=== PATIENT | female | born 1940 | race Hispanic/Latino ===

== ENCOUNTER 2016-12-30 14:30 | Inpatient (IN) | payer MEDICARE ==
[2016-12-30] MEDS ORDERED: ALUM-MAG HYDROX-SIMETH 200-200-20MG/5ML PO PRN (14:37)
[2016-12-30] MEDS ORDERED: TYLENOL PO PRN (14:37)
[2016-12-30] MEDS ORDERED: ZOFRAN IV PRN (14:37)
[2016-12-30] MEDS ORDERED: DULCOLAX PR PRN (14:37)
[2016-12-30] MEDS ORDERED: MILK OF MAGNESIA PO PRN (14:37)
[2016-12-30 16:12] LABS: Basophils % (Auto) 0.3 % (0.0-1.8); Hemoglobin 12.8 gm/dl (10.1-14.3); Mean Corpuscular HGB Conc 32 % (30-34); Mean Corpuscular Hemoglobin 30 pg (28-32); Mean Corpuscular Volume 94 fl (79-97); Platelet Count 256 K/mm3 (140-440); Red Blood Count 4.26 M/mm3 (3.65-5.03); Red Cell Distribution Width 14.5 % (13.2-15.2); White Blood Count 11.3 K/mm3 (4.5-11.0)
[2016-12-30 16:22] LABS: INR 0.95 (0.87-1.13)
[2016-12-30 16:23] LABS: Partial Thromboplastin Time 22.6 Sec. (24.2-36.6)
[2016-12-30] MEDS ORDERED: NACL 0.9% 1000 ML 1,000 ML IV SCH (17:00)
[2016-12-30] MEDS ORDERED: NACL 0.9% 500 ML 500 ML IV SCH (17:00)
[2016-12-30] MEDS: COLACE PO SCH ×2 (17:03→21:35)
--- NOTE | 2016-12-30 17:51 | Short Stay Summary ---
Short Stay Documentation Date of service: 12/30/16 Narrative H&P: The patient is 76-year-old woman with a history of coronary artery disease, who underwent coronary artery bypass surgery 7 years ago in [facility]. The bypass graft report is not available, and she is uncertain about the number of bypass grafts. Currently, she is undergoing outpatient hardier workup in anticipation of low back surgery. A thallium stress test was reported abnormal , which prompted a recommendation for an outpatient cardiac catheterization. 3 cardiac catheterization evaluation reported chronic kidney disease, and the patient is therefore recommended for inpatient admission on the day prior to the cath for IV saline hydration. The patient reports no chest pain, no shortness of breath, no palpitations, no edema and is otherwise asymptomatic from the cardiac status. Laboratory values prior to the cardiac catheterization revealed a creatinine of 1.3-1.5. Risks and benefits of the procedure, including elevated risk of contrast nephropathy, has been fully discussed with the patient and family and they have consented to proceed. We also find that the patient has an allergy to intravenous contrast, and she will be premedicated with oral prednisone. - History H&P: obtained from office Past Medical History: CAD Past Surgical History: CABG - Allergies and Medications Current Medications: Allergies SKYE Inhibitors Adverse Reaction (Verified 12/30/16 15:16) Swelling Iodinated Contrast Media - IV Dye Adverse Reaction (Verified 12/30/16 15:16) Rash Active Medications Acetaminophen (Tylenol) 650 mg PO Q4H PRN PRN Reason: Pain MILD(1-3)/Fever >100.5/[place] Hydrox/Mg Hydrox/Simethicone (Alum-Mag Hydrox-Simeth [id number]/5ml) 30 ml PO Q4H PRN PRN Reason: Indigestion Aspirin (Halfprin Ec) 81 mg PO QDAY ADRI Bisacodyl (Dulcolax) 10 mg [place] QDAY PRN PRN Reason: Constipation unrelieved by MOM Docusate Sodium (Colace) 100 mg PO BID [facility] Last Admin: 12/30/16 17:03 Dose: 100 mg Sodium Chloride (Nacl 0.9% 1000 Ml) 1,000 mls @ 75 mls/hr IV DIRECT ADRI Magnesium Hydroxide (Milk Of Magnesia) 30 ml PO Q4H PRN PRN Reason: Constipation Ondansetron HCl (Zofran) 4 mg IV Q8H PRN PRN Reason: N/V unrelieved by Reglan Prednisone (Deltasone) 50 mg PO Q6H ADRI Stop: 12/31/16 06:01 Zolpidem Tartrate (Ambien) 5 mg PO QHS PRN PRN Reason: Insomnia - Physical exam General appearance: no acute distress Integumentary: no rash HEENT: Atraumatic Lungs: Clear to auscultation Breasts: deferred Heart: Regular rate Gastrointestinal: normoactive bowel sounds Female Genitourinary: deferred Rectal Exam: deferred Extremities: No edema Neurological: Normal gait, Normal speech Short Stay Discharge Plan Follow up with: PRIMARY CARE, [Primary Care Provider] - 7 Days
[2016-12-30] MEDS ORDERED: ASPIRIN PO SCH (18:00)
--- NOTE | 2016-12-30 18:26 | Admit Criteria Form ---
Admission Criteria Documentation: CARDIOLOGY GRG Clinical Indications for Admission to Inpatient Care ( Place 'X' for any and all applicable criteria): Hospital admission is needed for appropriate care of the patient because of ANY ONE of the following (1): [ ] I. Hemodynamic instability as indicated by ALL of the following (1)(2)(3) (4)(5) [ ]a) Vital signs or other findings not as expected for chronic patient condition or baseline [ ]b) Instability indicated by ANY ONE of the following: [ ]i) Hypotension [ ]ii) Symptomatic Tachycardia unresponsive to treatment ( e.g., analgesia, fluids, sedation as indicated) [ ]iii) Inadequate perfusion indicated by ANY ONE of the following: [ ] 1) Lactic acidosis (> 2 mmol/L) [ ] 2) New abnormal capillary refill (> 3 seconds) [ ] 3) Reduced urine output [ ] 4) New altered mental status [ ]iv) Orthostatic vital sign changes unresponsive to treatment (e.g., fluids) [ ]v) IV inotropic or vasopressor medication required to maintain adequate blood pressure or perfusion [ ] II. Severe heart failure as indicated by ANY ONE of the following(17)(18) [ ]a) Respiratory distress [ ]b) Hypotension [ ]c) Anasarca (refractory to outpatient therapy) [ ]d) Cardiac arrhythmias of immediate concern [ ]e) Myocardial ischemia [ ] III. Cardiac arrhythmias or findings of immediate concern indicated by ANY ONE of the following (19)(20): [ ] a) Heart rhythms that are inherently dangerous or unstable indicated by ANY ONE of the following (21)(22)(23): [ ] i) Resuscitated ventricular fibrillation or cardiac arrest [ ] ii) Ventricular escape rhythm [ ] iii) Sustained ventricular tachycardia (30 seconds or more of ventricular rhythm at greater than 100 beats per minute) [ ] iv) Nonsustained ventricular tachycardia and ANY ONE of the following: [ ] 1) Suspected cardiac ischemia as cause or consequence of ventricular tachycardia [ ] 2) In setting of acute myocarditis [ ] b) Unstable cardiac conduction defects indicated by ANY ONE of the following(23)(24)(25) [ ] i) Type II second-degree atrioventricular block [ ]ii) Third-degree atrioventricular block [ ]iii) New-onset left bundle branch block with suspected myocardial ischemia [ ]c) Any heart rhythm and ANY ONE of the following (21)(22)(26)(27) (28) [ ] i) Continuous long-term ECG monitoring needed (e.g., initiation of drug requiring monitoring for more than 24 hours) [ ] ii) Patient has automatic implanted cardioverter defibrillator that is repeatedly firing, malfunctioning, or in need of immediate adjustment of settings beyond the scope of ambulatory or observation care [ ]d) Heart rhythms of concern due to ANY ONE of the following: [ ] i) Hypotension [ ] ii) Respiratory distress [ ] iii) Association with other significant symptoms (e.g., bradycardia with syncope or ongoing dizziness, supraventricular tachycardia with chest pain (14)(15)(17) [ ] IV. Monitoring for cardiac contusion beyond the scope of observation care needed [A](30)(31)(32) [ ] V. Surgical or device complication (e.g., valve replacement complication , pacemaker dysfunction) (35)(41)(44)(45)(46) [ ] . Inpatient palliative care needed. [B](49) Also use Inpatient Palliative Care Criteria [ ] VII. Nonbacterial thrombotic (marantic) endocarditis (36)(43)(47)(48) [X ] VIII. Cardiology condition, symptom, or finding for which emergency and observation care has failed or are not considered appropriate. [ ] IX. Acute valvular disease requiring inpatient as indicated by ANY ONE of the following (41) [ ]a) Acute valvular regurgitation (42) [ ]b) Noninfectious valvulitis (43) [ ]c) Obstructive valve thrombosis [ ]d) Paravalvular leak [ ]e) Other significant valvular disorder remaining after emergency or observation level of care (as appropriate) [ ]X. Pericardial disease requiring inpatient treatment as indicated by ANY ONE of the following (33)(34)(35)(36)(37) [ ]a) Suspected tamponade (38)(39)(40) [ ]b) Hemopericardium [ ]c) Other significant pericardial disorder remaining after emergency or observation level of care (as appropriate) [ ] XI. Cardiac ischemia beyond scope of emergency and observation care. [ ] XII. Hypertension requiring inpatient treatment as indicated by ANY ONE of the following (6)(7)(8) [ ]a) SBP greater than 220 mm Hg or DBP greater than 120 mmHg despite treatment [ ]b) SBP greater than 140 mm Hg or DBP greater than 100 mm Hg with evidence of acute end organ damage as indicated by ANY ONE of the following [ ] i) Altered mental status [ ] ii) Acute renal failure as indicated by new onset of ANY ONE of the following (9)(10)(11)(12)(13) [ ]1) 3-fold rise in serum creatinine from baseline [ ]2) Serum creatinine greater than 4 mg/dL ( 354 micromoles/L) with acute rise greater than 0.5 mg/dL (44.2 micromoles/L) [ ]3) Reduction of more than 75% in estimated glomerular filtration rate from baseline [ ]4) Estimated glomerular filtration rate less than 35 mL/min/1.73m2 (0.59 mL/sec/1.73m2) in child up to 18 years of age [ ]5) Cessation of urine output indicated by ALL of the following [ ]A. Adequate volume status [ ]B. Inadequate urine output as indicated by ANY ONE of the following [ ]a. Urine output less than 0.3 mL/kg/hr for 24 hours [ ]b. Anuria (urine output less than 0.1 mL/kg/hr) for 12 hours [ ] iii) Aortic dissection [ ] iv) Myocardial Ischemia [ ] v) Left ventricular heart failure [ ]vi) Retinal Hemorrhage [ ]vii) Other significant finding [ ]c) Hypertension in child requiring inpatient treatment as indicated by ALL of the following(14)(15)(16) [ ] i) Outpatient treatment not effective, not available, or not appropriate [ ]ii) SBP or DBP greater than 95th percentile for age [ ]iii) Evidence of acute end organ damage as indicated by ANY ONE of the following [ ]1) Altered mental status [ ]2) Acute renal failure as indicated by new onset of ANY ONE of the following(9)(10)(11)(12)(13) [ ]A. 3-fold rise in serum creatinine from baseline [ ]B. Serum creatinine greater than 4 mg/dL (354 micromoles/L) with acute rise greater than 0.5 mg/dL (44.2 micromoles/L) [ ]C. Reduction of more than 75% in estimated glomerular filtration rate from baseline [ ]D. Estimated glomerular filtration rate less than 35 mL/min/1.73m2 (0.59 mL/sec/1.73m2) in child up to 18 years of age [ ]E. Cessation of urine output indicated by ALL of the following [ ]a. Adequate volume status [ ]b. Inadequate urine output as indicated by ANY ONE of the following [ ]i) Urine output less than 0.3 mL/kg/hr for 24 hours [ ]ii) Anuria ( urine output less than 0.1 mL/kg/hr) for 12 hours [ ]3) Severe headache [ ]4) Visual disturbance [ ]5) Retinal hemorrhage [ ]6) Other significant finding [ ]XIII. Complications of transplanted heart indicated by ANY ONE of the following(61): [ ]a) Acute graft rejection requiring inpatient management (eg, intravenous immunosuppression)(62)(63) [ ]b) Acute graft heart failure indicated by ANY ONE of the following(64): [ ]i) Hemodynamic instability [ ]ii) Cardiac arrhythmias of immediate concern [ ]iii) Pulmonary edema that is very severe (eg, mechanical ventilation needed, imminent or likely, need for 100% oxygen to keep oxygen saturation above 90%) [ ]iv) Pulmonary edema that is persistent as indicated by ALL of the following: [ ]1) New need for oxygen therapy to keep oxygen saturation above 90% (or increased FiO2 need from baseline) [ ]2) Has not improved sufficiently with emergency department or observation care IV diuretics or other heart failure treatments[E] [ ]v) Altered mental status that is severe or persistent [ ]vi) Increased creatinine (new on laboratory test) with reduction of more than 50% in estimated glomerular filtration rate from baseline [ ]vii) Progressively (ongoing) rising creatinine (known from past laboratory test) with reduction of more than 25% in estimated glomerular filtration rate from baseline [ ]viii) Acute renal failure [ ]ix) Acute peripheral ischemia (eg, examination shows pulseless, cool, mottled, or cyanotic extremity) [ ]x) Pulmonary artery catheter monitoring needed [ ]xi) Other sign or symptom of heart failure requiring inpatient treatment (ie, too severe or not responsive to outpatient and observation care treatment) [ ]c) Infection requiring inpatient management (eg, Hemodynamic instability, need for intravenous antimicrobial treatment)(66)(67)(68)(69)(70) [ ]d) Cardiac allograft vasculopathy requiring inpatient management ( eg evidence of cardiac ischemia)(71) [ ]e) Other complication of transplanted heart (eg, stroke, severe pulmonary hypertension, severe valvular dysfunction) requiring inpatient management(72) The original [facility] [employer] content created by [employer] has been revised. The portions of the content which have been revised are identified through the use of italic text or in bold, and [facility] has neither reviewed nor approved the modified material. All other unmodified content is copyright [facility] [employer]. Please see references footnoted in the original [facility] [employer] edition 2016 Admission Criteria Met: Yes
[2016-12-30] MEDS: HALFPRIN EC PO SCH (18:35)
[2016-12-30] MEDS: DELTASONE PO SCH ×2 (18:36→23:20)
[2016-12-30 19:01] LABS: BUN/Creatinine Ratio 17.33; Calcium 9.6 mg/dL (8.4-10.2); Chloride 97.6 mmol/L (98-107); Potassium 5.6 mmol/L (3.6-5.0)
[2016-12-30] MEDS ORDERED: AMBIEN PO PRN (22:00)
[2016-12-31 05:32] LABS: BUN/Creatinine Ratio 23.07; Calcium 9.7 mg/dL (8.4-10.2); Chloride 96.9 mmol/L (98-107); Potassium 4.5 mmol/L (3.6-5.0)
[2016-12-31] MEDS: DELTASONE PO SCH (05:46)
[2016-12-31] MEDS: HALFPRIN EC PO SCH (09:40)
[2016-12-31] MEDS: COLACE PO SCH (09:40)
[2016-12-31] MEDS ORDERED: HALFPRIN EC PO ONE (10:11)
[2016-12-31] MEDS ORDERED: BENADRYL ONE (10:11)
[2016-12-31] MEDS ORDERED: NACL 0.9% 500 ML 500 ML ONE (10:16)
[2016-12-31] MEDS ORDERED: HEPARIN/NS 5000 UNIT/500ML(CATH LAB) 1,000 ML IR ONE (10:59)
[2016-12-31] MEDS ORDERED: VERSED ONE (10:59)
[2016-12-31] MEDS ORDERED: XYLOCAINE 2% INFILTRATI ONE (11:00)
[2016-12-31] MEDS ORDERED: SUBLIMAZE ONE (11:00)
--- NOTE | 2016-12-31 12:14 | Event Note ---
Date: 12/31/16 Cardiac cath shows a mid RCA 85% stenosis. We will plan staged PCI of the RCA in am, check Cr level in am after overnight hydration.
[2016-12-31] MEDS ORDERED: PLAVIX PO ONE (12:15)
[2016-12-31] MEDS ORDERED: CATAPRES PO PRN (12:16)
[2016-12-31] MEDS ORDERED: DIOVAN PO SCH (13:00)
[2016-12-31] MEDS ORDERED: NACL 0.9% 500 ML 500 ML IV SCH (13:00)
[2016-12-31] MEDS ORDERED: NACL 0.9% 1000 ML 1,000 ML IV SCH (13:00)
--- NOTE | 2016-12-31 14:28 | Cardiac Catherization Report ---
REASON FOR PROCEDURE: The patient is a 76-year-old woman with a history of 2-way coronary artery bypass 7 years ago. She is currently undergoing outpatient evaluation for low back surgery. Due to the finding of an abnormal thallium stress test, she was recommended for cardiac catheterization. The patient has known chronic kidney disease, as a consequence was referred for preprocedure admission for intravenous hydration. In addition, there is a history of anaphylaxis due to contrast, and she received preprocedure steroid therapy. PROCEDURES PERFORMED: 1. Left heart catheterization. 2. Selective left and right coronary angiography. 3. Left internal mammary artery graft and saphenous vein graft angiography. 4. Left ventricular angiography. DESCRIPTION OF PROCEDURE: The patient was prepped and draped in a sterile fashion after informed consent. Additional discussions were had with the patient and family with regards to higher than normal risk of contrast nephropathy in the setting of chronic kidney disease. The right femoral artery was prepped and draped, and the right femoral artery was entered using the Seldinger technique followed by placement of a 6-[place]ij[place] sheath. Selective angiography of the left coronary artery was done using #4 left Rachael catheter. 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 The right coronary artery was optimally cannulated using a multipurpose catheter. Angiography of the saphenous vein graft was performed using the right Rachael catheter. The left internal mammary artery graft catheter was used for left internal mammary graft angiography. Finally, left ventricular angiography was performed using hand injection and the multipurpose catheter. The catheters were removed, sheath removed, and hemostasis achieved using an Angio-Seal device. The patient was returned to the postprocedure unit in stable condition. Total contrast used for the procedure was 60 mL. FINDINGS: HEMODYNAMICS: Left ventricular end diastolic pressure was 20, following coronary angiography. Ascending aortic pressure was 233/87. There was no significant pressure gradient on pullback across the aortic valve. CORONARY ANGIOGRAPHY: The left main coronary artery contained mild irregularities. There was an 80% ostial stenosis of the left anterior descending artery. The left internal mammary artery graft to the LAD was patent with anastomosis to the mid LAD and good distal runoff. A medium-sized ramus intermedius artery contained mild luminal irregularities. The circumflex artery was occluded in its proximal segment. Saphenous vein graft to the circumflex system was patent with anastomosis to the large mid obtuse marginal and good distal runoff. The right coronary artery was dominant. This vessel was not previously bypassed. 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 There were mild irregularities of the proximal segment. The mid segment of the right coronary artery was notable for a focal, 85 to 90% stenosis. This was an eccentric lesion. The left ventricle was mildly dilated. There was mild left ventricular systolic dysfunction, ejection fraction 45 to 50%. CONCLUSION: 1. Three-vessel coronary disease. 2. Patent left internal mammary artery graft to the LAD. 3. Patent saphenous vein graft to the obtuse marginal branch of the circumflex artery. 4. Severe, De-Beth[place] stenosis of the mid right coronary artery. This vessel was not previously bypassed. 5. Mild left ventricular systolic dysfunction, ejection fraction 85 to 90%. RECOMMENDATION: The patient will be recommended for staged coronary angioplasty and stenting of the mid right coronary artery. Due to the patient's underlying kidney disease, an Ad hoc procedure which will require additional dye load at this time, will not be recommended. She will be scheduled for stage right coronary intervention. JOB# [id number] KEON/REBEKAH
[2016-12-31 14:51] VITALS: BP 180/74
--- NOTE | 2016-12-31 15:46 | Short Stay Summary ---
Short Stay Documentation Date of service: 12/31/16 - History H&P: obtained from office Past Medical History: CAD Past Surgical History: CABG - Allergies and Medications Current Medications: Allergies SKYE Inhibitors Adverse Reaction (Verified 12/30/16 15:16) Swelling Iodinated Contrast Media - IV Dye Adverse Reaction (Verified 12/30/16 15:16) Rash Active Medications Acetaminophen (Tylenol) 650 mg PO Q4H PRN PRN Reason: Pain MILD(1-3)/Fever >100.5/[place] Al Hydrox/Mg Hydrox/Simethicone (Alum-Mag Hydrox-Simeth [phone]/5ml) 30 ml PO Q4H PRN PRN Reason: Indigestion Aspirin (Halfprin Ec) 81 mg PO QDAY [facility] Last Admin: 12/31/16 09:40 Dose: Not Given Bisacodyl (Dulcolax) 10 mg [place] QDAY PRN PRN Reason: Constipation unrelieved by [facility] Clonidine HCl (Catapres) 0.1 mg PO Q4H PRN PRN Reason: SBP >150 Clopidogrel Bisulfate (Plavix) 75 mg PO QDAY [facility] Docusate Sodium (Colace) 100 mg PO BID [facility] Last Admin: 12/31/16 09:40 Dose: Not Given Sodium Chloride (Nacl 0.9% 1000 Ml) 1,000 mls @ 100 mls/hr IV DIRECT ADRI Stop: 01/01/17 06:59 Insulin Human Regular (Novolin R) 0 units SUB-Q ACHS ADRI PRN Reason: Protocol Last Admin: 12/31/16 12:18 Dose: Not Given Magnesium Hydroxide (Milk Of Magnesia) 30 ml PO Q4H PRN PRN Reason: Constipation Metoprolol Tartrate (Lopressor) 25 mg PO BID [facility] Ondansetron HCl (Zofran) 4 mg IV Q8H PRN PRN Reason: N/V unrelieved by Reglan Valsartan (Diovan) 160 mg PO DAILY [facility] Zolpidem Tartrate (Ambien) 5 mg PO QHS PRN PRN Reason: Insomnia Last Admin: 12/30/16 21:35 Dose: 5 mg - Physical exam General appearance: no acute distress Heart: Regular rate - Hospital course Hospital course: The patient is 76-year-old woman with a history of coronary artery disease, who underwent coronary artery bypass surgery 7 years ago in [facility]. The bypass graft report is not available, and she is uncertain about the number of bypass grafts. Currently, she is undergoing outpatient cardiac workup in anticipation of low back surgery. A thallium stress test was reported abnormal, which prompted a recommendation for an outpatient cardiac catheterization. Pre- cardiac catheterization evaluation reported chronic kidney disease, and the patient is, therefore, recommended for inpatient admission on the day prior to the cath for IV saline hydration. Laboratory values prior to the cardiac catheterization revealed a creatinine of 1.3-1.5. Risks and benefits of the procedure, including elevated risk of contrast nephropathy, has been fully discussed with the patient and family and they have consented to proceed. We also find that the patient has an allergy to intravenous contrast for which she was premedicated with oral prednisone. A cardiac cath showed 85% stenosis of the mid RCA, not previously bypassed. We recommended the patient to stay an additional night, for IV hydration and staged angioplasty and stenting to the mid RCA in the morning. The patient initially agreed but additional family members arrived and the patient decided to have PCI done electively, as an outpatient. Patient was noted hypertensive with systolic blood pressure as high as 180 for which we've added Diovan 160mg for optimal management. The patient reports no chest pain, no shortness of breath, no palpitations and is otherwise asymptomatic from the cardiac status. Plavix, aspirin, beta blockers, oral nitrates and statin therapy, on discharge, for her coronary artery disease. Patient will follow up with her primary slot floor attendant, Dr Ocampo, within 3-5 days of discharge. - Disposition Condition at discharge: Good Disposition: [id number] TO HOME OR SELFCARE Short Stay Discharge Plan Activity: advance as tolerated Diet: low fat, low cholesterol, low salt Additional Instructions: Low dose Aspirin daily, Plavix 75mg daily and Diovan 160mg daily in addition to home medications. Follow up with: PRIMARY CAREMD [Primary Care Provider] - 7 Days AGUSTO OCAMPO MD [Staff Physician] - 7 Days Prescriptions: Aspirin EC [Aspirin Enteric Coated TAB] 81 mg PO QDAY #30 tablet Clopidogrel [Plavix] 75 mg PO QDAY #30 tablet Valsartan [Diovan] 160 mg PO DAILY #30 tablet
[2016-12-31] MEDS ORDERED: LOPRESSOR PO SCH (22:00)
[2017-01-01] MEDS ORDERED: PLAVIX PO SCH (10:00)
== END 2016-12-31 17:18 | disposition home or self-care (01) | DRG 287 ==
LOC: UNDOADMIN 14:30 → 4A 14:30 → CC2 15:06
PROVIDERS: ADMIT Internal Medicine Cardiovascular Disease; ATTEND Internal Medicine Cardiovascular Disease
PROC: B2111ZZ Fluoroscopy of Multiple Coronary Arteries using Low Osmolar Contrast (ICD-10-PCS; principal; 2016-12-31)
PROC: 4A023N7 Measurement of Cardiac Sampling and Pressure, Left Heart, Percutaneous Approach (ICD-10-PCS; principal; 2016-12-31)
PROC: B2151ZZ Fluoroscopy of Left Heart using Low Osmolar Contrast (ICD-10-PCS; principal; 2016-12-31)
PROC: B2121ZZ Fluoroscopy of Single Coronary Artery Bypass Graft using Low Osmolar Contrast (ICD-10-PCS; principal; 2016-12-31)
PROC: B2181ZZ Fluoroscopy of Left Internal Mammary Bypass Graft using Low Osmolar Contrast (ICD-10-PCS; principal; 2016-12-31)
DX: I25.10 Atherosclerotic heart disease of native coronary artery without angina pectoris (principal); N18.9 Chronic kidney disease, unspecified; E11.22 Type 2 diabetes mellitus with diabetic chronic kidney disease; M19.90 Unspecified osteoarthritis, unspecified site; F32.9 Major depressive disorder, single episode, unspecified; E78.5 Hyperlipidemia, unspecified; I34.0 Nonrheumatic mitral (valve) insufficiency; Z90.710 Acquired absence of both cervix and uterus; Z95.1 Presence of aortocoronary bypass graft; Z91.041 Radiographic dye allergy status; Z82.49 Family history of ischemic heart disease and other diseases of the circulatory system; Z83.3 Family history of diabetes mellitus; Z88.8 Allergy status to other drugs, medicaments and biological substances
CPT/HCPCS: 36415; 80048; 82962; 85025; 85610; 85730; 93005; 93010; 93459; C1760; C1894; J1200; J1644; J1815; J2250; J2930; J3010; J7040; J7512; Q9967